=== PATIENT | male | born 1975 | race Caucasian/White ===

== ENCOUNTER 2018-12-31 18:14 | Emergency (ER) | payer MEDICAID ==
[~2018-12-31] VITALS: Ht 160 cm; Wt 63.5 kg
[2018-12-31] MEDS ORDERED: DIAZEPAM 5 MG/ML 2 ML DISP.SYRIN IV PRN (19:30)
--- NOTE | 2018-12-31 19:30 | NUR ---
PT BIBSELF C/O INTERMITTENT L SIDE CHEST PAIN X3 DAYS. +VOMITTING, -SOB. PT AOX4. RESP EVEN AND UNLABORED. PT ON MONITOR IN BED 2. WILL CONTINUE TO MONITOR.
--- NOTE | 2018-12-31 19:31 | NUR ---
BLOOD DRAWN AND GIVEN TO LAB
--- NOTE | 2018-12-31 19:31 | NUR ---
TECH AT BEDSIDE FOR EKG
[2018-12-31 19:36] LABS: BASOPHILS # (AUTO) 0.1 /CMM (0.0-0.2); BASOPHILS % (AUTO) 2.1 % (0.0-2.0); EOSINOPHILS % (AUTO) 0.7 % (0.0-6.0); HEMATOCRIT 42 % (39-51); HEMOGLOBIN 14.2 g/dL (13.5-17.5); LYMPHOCYTES # (AUTO) 0.7 /CMM (0.8-4.8); LYMPHOCYTES % (AUTO) 20.2 % (20.0-44.0); MEAN CORPUSCULAR HGB CONC 34 g/dl (31.0-36.0); MEAN CORPUSCULAR VOLUME 95 fL (80-96); MONOCYTES # (AUTO) 0.4 /CMM (0.1-1.30); MONOCYTES % (AUTO) 11.3 % (2.0-12.0); NEUTROPHILS # (AUTO) 2.2 /CMM (1.8-8.9); NEUTROPHILS % (AUTO) 65.7 % (43.0-81.0); PLATELET COUNT (AUTO) 155 /CMM (150-450); WHITE BLOOD COUNT (AUTO) 3.3 K/uL (4.3-11.0)
[2018-12-31] MEDS ORDERED: LORAZEPAM INJ 2 MG/ML VIAL IV PRN (20:00)
[2018-12-31] MEDS ORDERED: LORAZEPAM INJ 2 MG/ML VIAL ONE ×2 (20:02→21:22)
[2018-12-31 20:07] LABS: CALCIUM, SERUM 8.8 mg/dL (8.5-10.1); CARBON DIOXIDE 25 mmol/L (21-32); CHLORIDE 102 mmol/L (98-107); CREATININE 0.8 mg/dL (0.6-1.3); GLUCOSE 106 mg/dL (74-106); POTASSIUM 3.8 mmol/L (3.5-5.1); SODIUM SERUM 141 mmol/L (136-145); UREA NITROGEN, BLOOD 5 mg/dL (7-18)
--- NOTE | 2018-12-31 20:25 | NUR ---
SECOND DOSE OF 1MG ATIVAN IVP GIVEN PER MD ORDER
[2018-12-31] MEDS ORDERED: LORAZEPAM INJ 2 MG/ML VIAL IV ONE ×2 (21:30)
[2018-12-31 22:27] VITALS: BP 132/79
--- NOTE | 2018-12-31 22:28 | NUR ---
IV removed. Catheter intact and site benign. Pressure and 4x4 applied to site. No bleeding noted.Patient discharged to home in stable condition. Written and verbal after care instructions given. Patient verbalizes understanding of instruction.
== END 2018-12-31 22:38 | disposition home or self-care (01) ==
LOC: ER 18:20
DX: F10.239 Alcohol dependence with withdrawal, unspecified (principal); Z60.2 Problems related to living alone; Y90.9 Presence of alcohol in blood, level not specified
CPT/HCPCS: 36415; 71045; 80048; 84484; 85025; 93005 ×2; 96374; 96376; 99284; J2060 ×2

== ENCOUNTER 2019-03-17 10:47 | Emergency (ER) | payer SELFPAY ==
[~2019-03-17] VITALS: Ht 160 cm; Wt 69.4 kg
--- NOTE | 2019-03-17 11:05 | NUR ---
PT PRESENTED TO THE ER WITH A C/O INTERMITTENT L SIDED CP THAT RADIATES TO LUE. PT CURRENTLY DENIES PAIN. PT STATED THAT HE LIVES IN HIS CAR AND DOES NOT WANT [facility] INFO. PT IS GUINEAN SPEAKING WITH A LITTLE MOHAWK.
--- NOTE | 2019-03-17 11:48 | NUR ---
PT APPEARS TO BE RESTING COMFORTABLY WITH NO S/S OF PAIN OR DISTRESS.
--- NOTE | 2019-03-17 14:30 | NUR ---
Patient discharged to home in stable condition BY DR ORNELAS. VERBAL INSTRUCTIONS GIVEN TO PT. PT AMBULATED OUT WITH A STEADY GAIT. VSS.
[2019-03-17 15:21] VITALS: BP 136/78
== END 2019-03-17 14:30 | disposition home or self-care (01) ==
LOC: ER 10:49
DX: F10.239 Alcohol dependence with withdrawal, unspecified (principal); R07.89 Other chest pain; Y90.9 Presence of alcohol in blood, level not specified; Z60.2 Problems related to living alone

== ENCOUNTER 2019-10-12 13:49 | Emergency (ER) | payer MEDICAID ==
[~2019-10-12] VITALS: Ht 162.6 cm; Wt 59.0 kg
--- NOTE | 2019-10-12 13:58 | NUR ---
CAME IN FOR R SIDED CHEST PAIN, NON-RADIATING. ALSO C/O HEADACHE x 1WEEK. TO ER BED 9, HOOKED TO TUBE DRAW HELPER AND POX, VSS, CHANGED TO HOSP GOWN, WARM BLANKET PROVIDED, PATIENT AAO x 4, BREATHING EVEN AND UNLABORED. AWAITING MD MEZA.
--- NOTE | 2019-10-12 14:11 | NUR ---
DR ORNELAS AT BEDSIDE
[2019-10-12 14:27] LABS: BASOPHILS # (AUTO) 0.1 /CMM (0.0-0.2); BASOPHILS % (AUTO) 2.4 % (0.0-2.0); EOSINOPHILS % (AUTO) 1.1 % (0.0-6.0); HEMATOCRIT 40 % (39-51); HEMOGLOBIN 13.2 g/dL (13.5-17.5); LYMPHOCYTES # (AUTO) 1.4 /CMM (0.8-4.8); MEAN CORPUSCULAR HGB CONC 33 g/dl (31.0-36.0); MEAN CORPUSCULAR VOLUME 100 fL (80-96); MONOCYTES # (AUTO) 0.4 /CMM (0.1-1.30); MONOCYTES % (AUTO) 6.9 % (2.0-12.0); NEUTROPHILS % (AUTO) 66.6 % (43.0-81.0); PLATELET COUNT (AUTO) 114 /CMM (150-450); RED BLOOD CELL COUNT(AUTO) 3.96 MIL/uL (4.5-6.0)
[2019-10-12 14:34] LABS: CALCIUM, SERUM 8.5 mg/dL (8.5-10.1); CARBON DIOXIDE 27 mmol/L (21-32); CHLORIDE 100 mmol/L (98-107); CREATININE 0.6 mg/dL (0.6-1.3); GLUCOSE 190 mg/dL (74-106); POTASSIUM 3.8 mmol/L (3.5-5.1); SODIUM SERUM 136 mmol/L (136-145); UREA NITROGEN, BLOOD 7 mg/dL (7-18)
[2019-10-12 14:50] LABS: ALANINE AMINOTRANSFERASE 124 U/L (12-78); ALBUMIN 3.5 g/dL (3.4-5.0); ALKALINE PHOSPHATASE 100 U/L (46-116); ASPARTATE AMINOTRANSFERASE 177 U/L (15-37); B-TYPE NATRIURETIC PEPTIDE 20 PG/ML (0-125); BILIRUBIN,DIRECT 0.1 mg/dL (0.0-0.2); BILIRUBIN,TOTAL 0.2 mg/dL (0.2-1.0); TOTAL PROTEIN, SERUM 7.8 g/dL (6.4-8.2)
[2019-10-12 15:50] VITALS: BP 142/79
== END 2019-10-12 15:51 | disposition home or self-care (01) ==
LOC: ER 13:52
DX: R07.89 Other chest pain (principal); R51 Headache; Z60.2 Problems related to living alone
CPT/HCPCS: 36415; 71045-TC; 80048-TC; 80076-TC; 83880; 84484-TC; 85025-TC; 85378-TC

== ENCOUNTER 2020-07-14 12:05 | Emergency (ER) | payer MEDICAID ==
[~2020-07-14] VITALS: Ht 165.1 cm; Wt 74.8 kg
[2020-07-14 12:18] VITALS: BP 143/93
--- NOTE | 2020-07-14 12:20 | NUR ---
DR. LEON AT BEDSIDE FOR EVAL.
== END 2020-07-14 12:28 | disposition home or self-care (01) ==
LOC: ER 12:11
DX: G62.1 Alcoholic polyneuropathy (principal); I10 Essential (primary) hypertension; Z60.2 Problems related to living alone

== ENCOUNTER 2020-08-26 11:06 | Emergency (ER) | payer MEDICAID ==
[~2020-08-26] VITALS: Ht 165.1 cm; Wt 59.0 kg
--- NOTE | 2020-08-26 11:30 | NUR ---
CAME IN FOR L HAND INDEX FINGER SWELLING AND PAIN W/ OPEN WOUND. PT IS AAOX4. NOT IN RESP DISTRESS. AMBULATORY. AWAITING MD FOR SUSANA
[2020-08-26 12:19] LABS: BASOPHILS # (AUTO) 0.1 /CMM (0.0-0.2); BASOPHILS % (AUTO) 0.8 % (0.0-2.0); EOSINOPHILS % (AUTO) 2.3 % (0.0-6.0); HEMATOCRIT 39 % (39-51); LYMPHOCYTES # (AUTO) 1.7 /CMM (0.8-4.8); LYMPHOCYTES % (AUTO) 18.2 % (20.0-44.0); MEAN CORPUSCULAR HGB CONC 33 g/dl (31.0-36.0); MEAN CORPUSCULAR VOLUME 98 fL (80-96); MONOCYTES # (AUTO) 0.4 /CMM (0.1-1.30); MONOCYTES % (AUTO) 4.3 % (2.0-12.0); NEUTROPHILS # (AUTO) 6.9 /CMM (1.8-8.9); NEUTROPHILS % (AUTO) 74.4 % (43.0-81.0); PLATELET COUNT (AUTO) 219 /CMM (150-450); RED BLOOD CELL COUNT(AUTO) 3.96 MIL/uL (4.5-6.0); WHITE BLOOD COUNT (AUTO) 9.3 K/uL (4.3-11.0)
[2020-08-26 12:26] LABS: CALCIUM, SERUM 9.1 mg/dL (8.5-10.1); CREATININE 0.5 mg/dL (0.6-1.3); POTASSIUM 3.9 mmol/L (3.5-5.1)
[2020-08-26] MEDS ORDERED: CEPHALEXIN MONOHYDRATE 500 MG CAPSULE PO ONE ×2 (13:00→13:02)
[2020-08-26] MEDS ORDERED: SULFAMETH/TRIMETH 800/160 MG 1 UDTAB TABLET PO ONE (13:00)
[2020-08-26] MEDS ORDERED: SULFAMETH/TRIMETH 800/160 MG 1 UDTAB TABLET ONE (13:02)
[2020-08-26] MEDS ORDERED: CEPH500C2 PO (13:03)
[2020-08-26] MEDS ORDERED: SULF1TAB48 PO (13:03)
--- NOTE | 2020-08-26 13:26 | NUR ---
Patient discharged to home in stable condition. Written and verbal after care instructions given. Patient verbalizes understanding of instruction. Pt ambulatory with a steady gait
[2020-08-26 13:27] VITALS: BP 110/75
== END 2020-08-26 13:27 | disposition home or self-care (01) ==
LOC: ER 11:06
DX: L03.012 Cellulitis of left finger (principal); I10 Essential (primary) hypertension; F10.10 Alcohol abuse, uncomplicated; Y90.9 Presence of alcohol in blood, level not specified; Z79.899 Other long term (current) drug therapy; Z59.0 Homelessness
CPT/HCPCS: 36415; 73140-TC; 80048-TC; 85025-TC

== ENCOUNTER 2020-09-07 20:55 | Emergency (ER) | payer MEDICAID ==
[~2020-09-07] VITALS: Ht 165.1 cm; Wt 59.0 kg
[~2020-09-07 20:55] MED LIST: CEPH500C2 PO; SULF1TAB48 PO
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
[2020-09-07 22:50] LABS: BASOPHILS # (AUTO) 0.1 K/uL (0.0-0.2); BASOPHILS % (AUTO) 1.7 % (0.0-2.0); EOSINOPHILS % (AUTO) 0.6 % (0.0-6.0); HEMATOCRIT 41 % (39-51); HEMOGLOBIN 13.3 g/dL (13.5-17.5); LYMPHOCYTES # (AUTO) 1.4 K/uL (0.8-4.8); LYMPHOCYTES % (AUTO) 37.2 % (20.0-44.0); MEAN CORPUSCULAR HGB CONC 33 g/dl (31.0-36.0); MEAN CORPUSCULAR VOLUME 99 fL (80-96); MONOCYTES # (AUTO) 0.2 K/uL (0.1-1.30); MONOCYTES % (AUTO) 6.6 % (2.0-12.0); NEUTROPHILS % (AUTO) 53.9 % (43.0-81.0); RED BLOOD CELL COUNT(AUTO) 4.09 MIL/uL (4.5-6.0); WHITE BLOOD COUNT (AUTO) 3.8 K/uL (4.3-11.0)
[2020-09-07 23:14] LABS: CALCIUM, SERUM 8.5 mg/dL (8.5-10.1); CARBON DIOXIDE 27 mmol/L (21-32); CHLORIDE 103 mmol/L (98-107); CREATININE 0.6 mg/dL (0.6-1.3); GLUCOSE 118 mg/dL (74-106); POTASSIUM 3.8 mmol/L (3.5-5.1); SODIUM SERUM 141 mmol/L (136-145); UREA NITROGEN, BLOOD 6 mg/dL (7-18)
[2020-09-07 23:20] LABS: ALANINE AMINOTRANSFERASE 78 U/L (12-78); ALBUMIN 3.7 g/dL (3.4-5.0); ALCOHOL, BLOOD 497 mg/dL (0-0); ALKALINE PHOSPHATASE 151 U/L (46-116); ASPARTATE AMINOTRANSFERASE 128 U/L (15-37); BILIRUBIN,DIRECT 0.1 mg/dL (0.0-0.2); BILIRUBIN,TOTAL 0.2 mg/dL (0.2-1.0)
[2020-09-07 23:22] LABS: ACETAMINOPHEN < 2 ug/ml (10-30)
[2020-09-07 23:33] LABS: PLATELET COUNT (AUTO) 51 K/uL (150-450)
[2020-09-07] MEDS ORDERED: LIDOCAINE 2% JEL UROJET 10 ML MM ONE (23:33)
--- NOTE | 2020-09-07 23:36 | NUR ---
urine collected and sent to the lab.
[2020-09-07 23:53] LABS: BILIRUBIN,URINE NEGATIVE (NEGATIVE); COLOR,URINE YELLOW (YELLOW); LEUKOCYTE ESTERASE ,URINE NEGATIVE (NEGATIVE); NITRITE, URINE NEGATIVE (NEGATIVE); PROTEIN,URINE NEGATIVE (NEGATIVE); UGLUCOSE NEGATIVE (NEGATIVE); UROBILINOGEN,URINE 0.2 EU/dL (0.2)
[2020-09-08 00:34] LABS: BACTERIA,URINE None seen /HPF (None Seen); RBC,URINE 0-2 /HPF (0-2); SQUAMOUS EPITHELIAL CELL,UR Few /HPF (None Seen); URINE AMORPHOUS URATE Few /HPF (None Seen); WBC,URINE 0-2 /HPF (0-3)
[2020-09-08 00:40] LABS: LYMPHOCYTES % (MANUAL) 45 % (16-48); MONOCYTES % (MANUAL) 5 % (0-11.0); NEUTROPHILS % (MANUAL) 50 (42-76)
--- NOTE | 2020-09-08 04:05 | NUR ---
Patient is road tested, patient is unable to ambulate with a steady gait. Will try at a later time.
--- NOTE | 2020-09-08 07:58 | NUR ---
pt awake ate brealfast and amb to br voided back to bed
--- NOTE | 2020-09-08 10:54 | NUR ---
PT. VERBALIZED UNDERSTANDING OF AFTERCARE INSTRUCTIONS.Patient discharged to home in stable condition. Written and verbal after care instructions given. Patient verbalizes understanding of instruction.IV removed. Catheter intact and site benign. Pressure and 4x4 applied to site. No bleeding noted.
[2020-09-08 10:55] VITALS: BP 126/73
== END 2020-09-08 10:56 | disposition home or self-care (01) ==
LOC: ER 20:58
DX: S20.213A Contusion of bilateral front wall of thorax, initial encounter (principal); I10 Essential (primary) hypertension; Y08.89XA Assault by other specified means, initial encounter; Y93.89 Activity, other specified; Y92.89 Other specified places as the place of occurrence of the external cause; Y99.8 Other external cause status
CPT/HCPCS: 36415; 71045; 80048; 80076; 80143; 80307; 80320; 81001; 84484; 85007; 85025; 93005; 99285; J3490; G0480

== ENCOUNTER 2020-09-17 14:39 | Emergency (ER) | payer MEDICAID ==
[~2020-09-17] VITALS: Ht 165.1 cm; Wt 55.3 kg
--- NOTE | 2020-09-17 14:58 | NUR ---
CALLED TO TRIAGE,NO ANSWER
[2020-09-17 14:59] VITALS: BP 126/89
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
[2020-09-17] MEDS ORDERED: AMOX-430 PO (15:54)
[2020-09-17] MEDS ORDERED: AMOX/CLAVULANATE 875 MG TABLET ONE (15:54)
[2020-09-17] MEDS ORDERED: AMOX/CLAVULANATE 875 MG TABLET PO ONE (16:00)
== END 2020-09-17 16:34 | disposition home or self-care (01) ==
LOC: ER 15:58
DX: S70.11XA Contusion of right thigh, initial encounter (principal); I10 Essential (primary) hypertension; W54.0XXA Bitten by dog, initial encounter; Y93.89 Activity, other specified; Y92.89 Other specified places as the place of occurrence of the external cause; Y99.8 Other external cause status

== ENCOUNTER 2020-11-18 15:04 | Emergency (ER) | payer MEDICAID ==
[~2020-11-18] VITALS: Ht 162.6 cm; Wt 70.3 kg
[~2020-11-18 15:04] MED LIST changes: +AMOX-430 PO
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
--- NOTE | 2020-11-18 16:04 | NUR ---
URINE COLLECTED AND SENT TO THE LAB
[2020-11-18 16:25] LABS: BASOPHILS # (AUTO) 0.1 K/uL (0.0-0.2); BASOPHILS % (AUTO) 1.1 % (0.0-2.0); EOSINOPHILS % (AUTO) 0.1 % (0.0-6.0); HEMATOCRIT 40 % (39-51); HEMOGLOBIN 13.3 g/dL (13.5-17.5); LYMPHOCYTES # (AUTO) 0.3 K/uL (0.8-4.8); LYMPHOCYTES % (AUTO) 5.1 % (20.0-44.0); MEAN CORPUSCULAR HGB CONC 34 g/dl (31.0-36.0); MEAN CORPUSCULAR VOLUME 96 fL (80-96); MONOCYTES # (AUTO) 0.3 K/uL (0.1-1.30); MONOCYTES % (AUTO) 5.7 % (2.0-12.0); NEUTROPHILS # (AUTO) 4.8 K/uL (1.8-8.9); PLATELET COUNT (AUTO) 113 K/uL (150-450); RED BLOOD CELL COUNT(AUTO) 4.16 MIL/uL (4.5-6.0); WHITE BLOOD COUNT (AUTO) 5.4 K/uL (4.3-11.0)
[2020-11-18 16:34] LABS: MAGNESIUM 1.5 mg/dL (1.8-2.4)
[2020-11-18 16:36] LABS: CALCIUM, SERUM 9.8 mg/dL (8.5-10.1); CARBON DIOXIDE 29 mmol/L (21-32); CHLORIDE 100 mmol/L (98-107); CREATININE 0.7 mg/dL (0.6-1.3); GLUCOSE 152 mg/dL (74-106); POTASSIUM 4.7 mmol/L (3.5-5.1); SODIUM SERUM 139 mmol/L (136-145); UREA NITROGEN, BLOOD 5 mg/dL (7-18)
[2020-11-18 16:47] LABS: ALANINE AMINOTRANSFERASE 139 U/L (12-78); ALCOHOL, BLOOD < 3 mg/dL (0-0); ALKALINE PHOSPHATASE 119 U/L (46-116); ASPARTATE AMINOTRANSFERASE 189 U/L (15-37); BILIRUBIN,DIRECT 0.3 mg/dL (0.0-0.2); BILIRUBIN,TOTAL 0.7 mg/dL (0.2-1.0)
[2020-11-18 16:48] LABS: BILIRUBIN,URINE Negative (NEGATIVE); COLOR,URINE DARK YELLOW (YELLOW); LEUKOCYTE ESTERASE ,URINE Negative (NEGATIVE); NITRITE, URINE Negative (NEGATIVE); PH,URINE 7.5 (5.0-8.0); PROTEIN,URINE 100 mg/dl (NEGATIVE); UGLUCOSE Negative (NEGATIVE)
[2020-11-18 16:49] LABS: ACETAMINOPHEN < 0 ug/ml (10-30)
[2020-11-18 17:59] LABS: BACTERIA,URINE None seen /HPF (None Seen); RBC,URINE 0-2 /HPF (0-2); SQUAMOUS EPITHELIAL CELL,UR Few /HPF (None Seen); WBC,URINE 0-2 /HPF (0-3)
[2020-11-18] MEDS ORDERED: CHLORDIAZEPOXIDE HCL 25 MG CAPSULE ONE (18:00)
[2020-11-18] MEDS ORDERED: CHLORDIAZEPOXIDE HCL 25 MG CAPSULE PO ONE (18:00)
[2020-11-18] MEDS ORDERED: MAGNESIUM CHLORIDE 64 MG TABLET.SA PO SCH (18:00)
[2020-11-18] MEDS ORDERED: CHLO25CA22 PO (19:20)
[2020-11-18 20:07] VITALS: BP 129/76
--- NOTE | 2020-11-18 20:07 | NUR ---
Patient discharged to home in stable condition. Written and verbal after care instructions given. Patient verbalizes understanding of instruction and RX. Pt ambulated out of ED. VSS.
== END 2020-11-18 20:07 | disposition home or self-care (01) ==
LOC: ER 15:07
DX: F10.239 Alcohol dependence with withdrawal, unspecified (principal); R56.9 Unspecified convulsions; D64.9 Anemia, unspecified; D69.6 Thrombocytopenia, unspecified; E83.42 Hypomagnesemia; R94.5 Abnormal results of liver function studies; I10 Essential (primary) hypertension; Z79.899 Other long term (current) drug therapy; Y90.0 Blood alcohol level of less than 20 mg/100 ml
CPT/HCPCS: 36415; 70450-TC; 80048-TC; 80076-TC; 81001; 82550-TC; 83735-TC; 85025-TC; G0480

== ENCOUNTER 2021-01-17 11:21 | Emergency (ER) | payer MEDICAID ==
[~2021-01-17] VITALS: Ht 162.6 cm; Wt 61.7 kg
[~2021-01-17 11:21] MED LIST changes: +CHLO25CA22 PO
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
[2021-01-17] MEDS ORDERED: LIDOCAINE /MPF 1% VIAL 5 ML VIAL ONE (11:40)
--- NOTE | 2021-01-17 11:46 | NUR ---
TAKEN TO CT
--- NOTE | 2021-01-17 12:05 | NUR ---
EMT AT BEDSIDE FOR WOUND CARE
[2021-01-17 13:32] VITALS: BP 131/88
--- NOTE | 2021-01-17 13:32 | NUR ---
Patient discharged to home in stable condition. Written and verbal after care instructions given. Patient verbalizes understanding of instruction.
== END 2021-01-17 13:32 | disposition home or self-care (01) ==
LOC: ER 11:21
DX: S01.81XA Laceration without foreign body of other part of head, initial encounter (principal); F10.10 Alcohol abuse, uncomplicated; Z79.899 Other long term (current) drug therapy; W01.0XXA Fall on same level from slipping, tripping and stumbling without subsequent striking against object, initial encounter; Y93.89 Activity, other specified; Y92.89 Other specified places as the place of occurrence of the external cause; Y99.8 Other external cause status; Y90.9 Presence of alcohol in blood, level not specified
CPT/HCPCS: 12013; 70450; 72125; 99284; A6403; J3490

== ENCOUNTER 2021-01-23 07:49 | Emergency (ER) | payer MEDICAID ==
[~2021-01-23] VITALS: Ht 165.1 cm; Wt 65.8 kg
[2021-01-23 08:08] VITALS: BP 127/105
== END 2021-01-23 09:18 | disposition home or self-care (01) ==
LOC: ER 07:50
DX: S01.81XD Laceration without foreign body of other part of head, subsequent encounter (principal); X58.XXXD Exposure to other specified factors, subsequent encounter

== ENCOUNTER 2021-02-10 18:06 | Emergency (ER) | payer MEDICAID ==
[~2021-02-10] VITALS: Ht 162.6 cm; Wt 63.5 kg
[2021-02-10 18:28] VITALS: BP 144/87
[2021-02-10 18:51] LABS: BASOPHILS # (AUTO) 0.1 K/uL (0.0-0.2); EOSINOPHILS % (AUTO) 0.7 % (0.0-6.0); HEMATOCRIT 39 % (39-51); HEMOGLOBIN 12.9 g/dL (13.5-17.5); LYMPHOCYTES # (AUTO) 1.9 K/uL (0.8-4.8); LYMPHOCYTES % (AUTO) 40.3 % (20.0-44.0); MEAN CORPUSCULAR HGB CONC 33 g/dl (31.0-36.0); MEAN CORPUSCULAR VOLUME 99 fL (80-96); MONOCYTES # (AUTO) 0.4 K/uL (0.1-1.30); NEUTROPHILS # (AUTO) 2.2 K/uL (1.8-8.9); PLATELET COUNT (AUTO) 185 K/uL (150-450); RED BLOOD CELL COUNT(AUTO) 3.91 MIL/uL (4.5-6.0); WHITE BLOOD COUNT (AUTO) 4.6 K/uL (4.3-11.0)
[2021-02-10 18:58] LABS: CALCIUM, SERUM 8.8 mg/dL (8.5-10.1); CARBON DIOXIDE 27 mmol/L (21-32); CHLORIDE 101 mmol/L (98-107); CREATININE 0.6 mg/dL (0.6-1.3); GLUCOSE 111 mg/dL (74-106); POTASSIUM 3.5 mmol/L (3.5-5.1); SODIUM SERUM 140 mmol/L (136-145); UREA NITROGEN, BLOOD 5 mg/dL (7-18)
[2021-02-10] MEDS ORDERED: IV NS 0.9% 1,000 ML BAG IV ONE (19:00)
[2021-02-10] MEDS ORDERED: Thiamine 100 MG in IV D5W 50 ML IV SCH (19:00)
[2021-02-10] MEDS ORDERED: CYAN-51 PO (19:59)
--- NOTE | 2021-02-10 23:01 | NUR ---
Patient discharged to home in stable condition. Written and verbal after care instructions given. Patient verbalizes understanding of instruction.
== END 2021-02-10 23:43 | disposition home or self-care (01) ==
LOC: ER 18:11
DX: D51.0 Vitamin B12 deficiency anemia due to intrinsic factor deficiency (principal)
CPT/HCPCS: 36415; 71045; 80048; 84425; 84484; 85025; 85730; 96365; 99284; J3411; J7060

== ENCOUNTER 2021-02-25 07:38 | Emergency (ER) | payer MEDICAID ==
[~2021-02-25] VITALS: Ht 165.1 cm; Wt 63.5 kg
[~2021-02-25 07:38] MED LIST changes: +CYAN-51 PO
--- NOTE | 2021-02-25 08:10 | NUR ---
PT CAME TO ER C/O CHRONIC R KNEE PAIN, WORSE AT NIGHT X 5 YEARS. AAOX4, AMBULATES WITH A LIMP TO BED 10 ASSISTED WITH A CANE. BREATHING EVEN AND UNLABORED. AWAITING MD FOR SUSANA
[2021-02-25 08:34] VITALS: BP 133/83
[2021-02-25] MEDS ORDERED: LIDOCAINE 0.5%-EPI 1:200,000 50 ML VIAL ONE (08:54)
[2021-02-25] MEDS ORDERED: LIDOCAINE 1%-EPI 1:100,000 20 ML VIAL TP ONE (09:00)
[2021-02-25] MEDS ORDERED: IBUPROFEN 600 MG TABLET PO ONE (09:00)
[2021-02-25] MEDS ORDERED: IBUPROFEN 600 MG TABLET ONE (09:16)
[2021-02-25 09:32] LABS: BASOPHILS # (AUTO) 0.1 K/uL (0.0-0.2); BASOPHILS % (AUTO) 1.2 % (0.0-2.0); EOSINOPHILS % (AUTO) 0.1 % (0.0-6.0); HEMATOCRIT 37 % (39-51); HEMOGLOBIN 12.4 g/dL (13.5-17.5); LYMPHOCYTES # (AUTO) 0.8 K/uL (0.8-4.8); LYMPHOCYTES % (AUTO) 13.8 % (20.0-44.0); MEAN CORPUSCULAR HGB CONC 34 g/dl (31.0-36.0); MEAN CORPUSCULAR VOLUME 98 fL (80-96); MONOCYTES # (AUTO) 0.6 K/uL (0.1-1.30); MONOCYTES % (AUTO) 10.3 % (2.0-12.0); NEUTROPHILS # (AUTO) 4.5 K/uL (1.8-8.9); NEUTROPHILS % (AUTO) 74.6 % (43.0-81.0); PLATELET COUNT (AUTO) 126 K/uL (150-450); RED BLOOD CELL COUNT(AUTO) 3.77 MIL/uL (4.5-6.0)
[2021-02-25 09:56] LABS: CALCIUM, SERUM 8.6 mg/dL (8.5-10.1); CREATININE 0.6 mg/dL (0.6-1.3); POTASSIUM 3.8 mmol/L (3.5-5.1)
--- NOTE | 2021-02-25 11:21 | NUR ---
SYNOVIAL FLUID WAS COLLECTED BY DR ROBLEDO. SPECIMEN WAS SENT TO THE LAB
[2021-02-25] MEDS ORDERED: IV NS 0.9% 1,000 ML BAG IV ONE (12:00)
[2021-02-25] MEDS ORDERED: CEFTRIAXONE 1GM BAG (ER ONLY) 1 GM/50 ML PIGGYBACK IV ONE (15:00)
[2021-02-25] MEDS ORDERED: CEFTRIAXONE 1GM BAG (ER ONLY) 50 ML IV ONE (15:21)
--- NOTE | 2021-02-25 15:27 | NUR ---
DISCONTINUE ROCEPHIN ORDER. DUPLICATE
[2021-02-25 15:34] LABS: URIC ACID 4.3 mg/dL (2.6-7.2)
[2021-02-25] MEDS ORDERED: CEFTRIAXONE 1 G in IV D5W 50 ML IV ONE (16:00)
== END 2021-02-25 16:03 | disposition home or self-care (01) ==
LOC: ER 07:40
DX: M25.461 Effusion, right knee (principal)
CPT/HCPCS: 20610; 36415; 73564; 80048; 83605; 84550; 85025; 85652; 86140; 87070; 89051 ×2; 89060; 96361; 96365; 99284; J0696; J3490; J7030; 84155-TC; J7060

== ENCOUNTER 2021-04-12 12:16 | Emergency (ER) | payer MEDICAID ==
[~2021-04-12] VITALS: Ht 170.2 cm; Wt 65.8 kg
--- NOTE | 2021-04-12 12:36 | NUR ---
TO ER BED 14, BIB SELF C/O R KNEE PAIN X 1 MONTH, AAOX3, BREATHING EVEN AND NON LABORED, CONNECTED TO MONITOR, AWAITING MD ORDERS
--- NOTE | 2021-04-12 13:14 | NUR ---
SEEN AND EXAMINED BY .
--- NOTE | 2021-04-12 13:48 | NUR ---
URINE COLLECTED AND SENT TO LAB
[2021-04-12 14:41] LABS: BASOPHILS # (AUTO) 0.1 K/uL (0.0-0.2); BASOPHILS % (AUTO) 1.8 % (0.0-2.0); EOSINOPHILS % (AUTO) 8.8 % (0.0-6.0); HEMATOCRIT 36 % (39-51); LYMPHOCYTES # (AUTO) 1.1 K/uL (0.8-4.8); LYMPHOCYTES % (AUTO) 32.7 % (20.0-44.0); MEAN CORPUSCULAR HGB CONC 34 g/dl (31.0-36.0); MEAN CORPUSCULAR VOLUME 95 fL (80-96); MONOCYTES # (AUTO) 0.4 K/uL (0.1-1.30); MONOCYTES % (AUTO) 11.6 % (2.0-12.0); NEUTROPHILS # (AUTO) 1.5 K/uL (1.8-8.9); NEUTROPHILS % (AUTO) 45.1 % (43.0-81.0); PLATELET COUNT (AUTO) 179 K/uL (150-450); RED BLOOD CELL COUNT(AUTO) 3.74 MIL/uL (4.5-6.0); WHITE BLOOD COUNT (AUTO) 3.3 K/uL (4.3-11.0)
[2021-04-12 15:02] LABS: CALCIUM, SERUM 8.7 mg/dL (8.5-10.1); CREATININE 0.7 mg/dL (0.6-1.3); POTASSIUM 3.7 mmol/L (3.5-5.1)
[2021-04-12 15:13] LABS: ALBUMIN 3.3 g/dL (3.4-5.0); BILIRUBIN,DIRECT 0.1 mg/dL (0.0-0.2); BILIRUBIN,TOTAL 0.2 mg/dL (0.2-1.0); TOTAL PROTEIN, SERUM 8.2 g/dL (6.4-8.2)
[2021-04-12] MEDS ORDERED: LEVETIRACETAM (250 MG) 250 MG TABLET PO ONE ×2 (16:00→16:10)
[2021-04-12] MEDS ORDERED: LEVE500T9 PO (16:08)
[2021-04-12 16:30] LABS: BAND % (MANUAL) 1 % (0.0-5.0); EOSINOPHILS % (MANUAL) 9 % (0-4); LYMPHOCYTES % (MANUAL) 34 % (16-48); MONOCYTES % (MANUAL) 10 % (0-11.0); NEUTROPHILS % (MANUAL) 46 (42-76)
--- NOTE | 2021-04-12 16:38 | NUR ---
Patient discharged to home in stable condition. Written and verbal after care instructions given. Patient verbalizes understanding of instruction.
[2021-04-12 16:39] VITALS: BP 122/77
== END 2021-04-12 16:39 | disposition home or self-care (01) ==
LOC: ER 12:19
DX: R56.9 Unspecified convulsions (principal); F10.10 Alcohol abuse, uncomplicated; G62.1 Alcoholic polyneuropathy; M25.561 Pain in right knee; Y90.9 Presence of alcohol in blood, level not specified
CPT/HCPCS: 36415; 70450-TC; 73564-TC; 80048-TC; 80076-TC; 83735-TC; 84484-TC; 85025-TC; G0480

== ENCOUNTER 2021-08-31 10:27 | Emergency (ER) | payer MEDICAID ==
[~2021-08-31] VITALS: Ht 162.6 cm; Wt 65.3 kg
--- NOTE | 2021-08-31 10:42 | NUR ---
BLE numbness x 4 weeks
[2021-08-31 10:58] VITALS: BP 137/82
--- NOTE | 2021-08-31 10:58 | NUR ---
Patient discharged to home in stable condition. Written and verbal after care instructions given. Patient verbalizes understanding of instruction.
== END 2021-08-31 10:59 | disposition home or self-care (01) ==
LOC: ER 10:28
DX: G62.1 Alcoholic polyneuropathy (principal); F10.288 Alcohol dependence with other alcohol-induced disorder; Y90.9 Presence of alcohol in blood, level not specified

== ENCOUNTER 2021-10-23 20:05 | Emergency (ER) | payer MEDICAID ==
[~2021-10-23] VITALS: Ht 167.6 cm; Wt 63.5 kg
[2021-10-23 20:09] VITALS: BP 125/70
--- NOTE | 2021-10-23 20:24 | NUR ---
Patient discharged to home in stable condition. Written and verbal after care instructions given. Patient verbalizes understanding of instruction.
== END 2021-10-23 20:24 | disposition home or self-care (01) ==
LOC: ER 20:09
DX: S83.91XA Sprain of unspecified site of right knee, initial encounter (principal); Y08.89XA Assault by other specified means, initial encounter; Y93.89 Activity, other specified; Y92.89 Other specified places as the place of occurrence of the external cause; Y99.8 Other external cause status

== ENCOUNTER 2021-11-10 14:42 | Emergency (ER) | payer MEDICAID ==
[~2021-11-10] VITALS: Ht 167.6 cm; Wt 72.6 kg
[2021-11-10 14:48] VITALS: BP 126/73
--- NOTE | 2021-11-10 14:48 | NUR ---
BIBS C/O R KNEE PAIN FOR A WHILE. 6/10 PAIN ON PAIN SCALE. PT IS AMBULATORY WITH STEADY GATE. AWIATING MD ORDERS.
[2021-11-10] MEDS ORDERED: IBUP-1955 PO (15:35)
[2021-11-10] MEDS ORDERED: KETOROLAC TROMETHAMINE 15 MG/ML VIAL ONE (15:35)
--- NOTE | 2021-11-10 15:45 | NUR ---
Patient discharged to home in stable condition. Written and verbal after care instructions given. Patient verbalizes understanding of instruction.
[2021-11-10] MEDS ORDERED: KETOROLAC TROMETHAMINE INJ 30 MG/ML VIAL IM ONE (16:00)
== END 2021-11-10 15:45 | disposition home or self-care (01) ==
LOC: ER 14:45
DX: G89.29 Other chronic pain (principal); M25.561 Pain in right knee
CPT/HCPCS: 99283; 96372; J1885

== ENCOUNTER 2021-11-25 17:42 | Emergency (ER) | payer MEDICAID ==
[~2021-11-25] VITALS: Ht 170.2 cm; Wt 66.7 kg
[~2021-11-25 17:42] MED LIST changes: -AMOX-430 PO; -CEPH500C2 PO; -CHLO25CA22 PO; -CYAN-51 PO; +IBUP-1955 PO; -SULF1TAB48 PO
[2021-11-25 17:55] VITALS: BP 124/77
[2021-11-25] MEDS ORDERED: ACETAMINOPHEN ES 500 MG TABLET PO ONE (18:30)
[2021-11-25] MEDS ORDERED: ACETAMINOPHEN ES 500 MG TABLET ONE (18:34)
[2021-11-25] MEDS ORDERED: KETO10TA2 PO (18:36)
[2021-11-25] MEDS ORDERED: TRAM-351 PO (18:36)
--- NOTE | 2021-11-25 18:49 | NUR ---
Patient discharged to home in stable condition. Written and verbal after care instructions given. Patient verbalizes understanding of instruction.
== END 2021-11-25 18:49 | disposition home or self-care (01) ==
LOC: ER 17:45
DX: S82.64XA Nondisplaced fracture of lateral malleolus of right fibula, initial encounter for closed fracture (principal); Z79.899 Other long term (current) drug therapy; W18.30XA Fall on same level, unspecified, initial encounter; Y93.89 Activity, other specified; Y92.89 Other specified places as the place of occurrence of the external cause; Y99.8 Other external cause status
CPT/HCPCS: 73564-TC; 73610-TC

== ENCOUNTER 2021-11-27 09:54 | Emergency (ER) | payer MEDICAID ==
[~2021-11-27] VITALS: Ht 165.1 cm; Wt 68.0 kg
[~2021-11-27 09:54] MED LIST changes: +KETO10TA2 PO; +TRAM-351 PO
[2021-11-27 10:04] VITALS: BP 140/88
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
--- NOTE | 2021-11-27 10:43 | NUR ---
Patient discharged to home in stable condition. Written and verbal after care instructions given. Patient verbalizes understanding of instruction.
== END 2021-11-27 10:43 | disposition home or self-care (01) ==
LOC: ER 10:01
DX: S82.64XD Nondisplaced fracture of lateral malleolus of right fibula, subsequent encounter for closed fracture with routine healing (principal); Z79.899 Other long term (current) drug therapy; X58.XXXD Exposure to other specified factors, subsequent encounter

== ENCOUNTER 2021-12-05 14:19 | Emergency (ER) | payer MEDICAID ==
[~2021-12-05] VITALS: Ht 165.1 cm; Wt 72.6 kg
[2021-12-05 14:26] VITALS: BP 132/78
== END 2021-12-05 15:37 | disposition home or self-care (01) ==
LOC: ER 14:21
DX: S82.61XD Displaced fracture of lateral malleolus of right fibula, subsequent encounter for closed fracture with routine healing (principal); X58.XXXD Exposure to other specified factors, subsequent encounter

== ENCOUNTER 2021-12-17 10:12 | Emergency (ER) | payer MEDICAID ==
[~2021-12-17] VITALS: Ht 157.5 cm; Wt 59.0 kg
--- NOTE | 2021-12-17 12:00 | NUR ---
Short Posterior splint with stirrup by EMT on affected area. Specific instructions given on care and mobility. Need for OTHOpedic follow up reiterated
[2021-12-17 12:36] VITALS: BP 120/60
--- NOTE | 2021-12-17 12:36 | NUR ---
For discharge- Patient discharged to home in stable condition. Written and verbal after care instructions given. Patient verbalizes understanding of instruction.
== END 2021-12-17 12:38 | disposition home or self-care (01) ==
LOC: ER 10:14
DX: Z48.00 Encounter for change or removal of nonsurgical wound dressing (principal); Z47.89 Encounter for other orthopedic aftercare

== ENCOUNTER 2021-12-24 15:17 | Emergency (ER) | payer MEDICAID ==
[~2021-12-24] VITALS: Ht 157.5 cm; Wt 54.4 kg
[2021-12-24 15:30] VITALS: BP 112/71
--- NOTE | 2021-12-24 15:31 | NUR ---
Was seen here multiple times for leg pain/fx. AMBULATORY, PLACED ON BED, AAOX4.
--- NOTE | 2021-12-24 15:59 | NUR ---
Patient discharged to home in stable condition. Written and verbal after care instructions given. Patient verbalizes understanding of instruction.
== END 2021-12-24 15:55 | disposition home or self-care (01) ==
LOC: ER 15:21
DX: S82.61XD Displaced fracture of lateral malleolus of right fibula, subsequent encounter for closed fracture with routine healing (principal); Z79.899 Other long term (current) drug therapy; X58.XXXD Exposure to other specified factors, subsequent encounter

== ENCOUNTER 2021-12-30 10:18 | Emergency (ER) | payer MEDICAID ==
[~2021-12-30] VITALS: Ht 165.1 cm; Wt 61.2 kg
[2021-12-30 10:28] VITALS: BP 105/69
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
--- NOTE | 2021-12-30 11:57 | NUR ---
Patient discharged to home in stable condition. Written and verbal after care instructions given. Patient verbalizes understanding of instruction.
== END 2021-12-30 12:06 | disposition home or self-care (01) ==
LOC: ER 10:28
DX: S82.61XD Displaced fracture of lateral malleolus of right fibula, subsequent encounter for closed fracture with routine healing (principal); X58.XXXD Exposure to other specified factors, subsequent encounter
CPT/HCPCS: 73610-TC

== ENCOUNTER 2022-05-31 11:38 | Emergency (ER) | payer MEDICAID ==
[~2022-05-31] VITALS: Ht 175.3 cm; Wt 65.8 kg
[~2022-05-31 11:38] MED LIST changes: +IBUP-1953 PO
[2022-05-31 12:39] VITALS: BP 121/69
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
--- NOTE | 2022-05-31 13:37 | NUR ---
TO XRAY VIA WC
--- NOTE | 2022-05-31 14:50 | NUR ---
Patient discharged to home in stable condition. Written and verbal after care instructions given. Patient verbalizes understanding of instruction.
== END 2022-05-31 15:14 | disposition home or self-care (01) ==
LOC: ER 11:40
DX: S93.401A Sprain of unspecified ligament of right ankle, initial encounter (principal); M19.071 Primary osteoarthritis, right ankle and foot; Z79.899 Other long term (current) drug therapy; X58.XXXA Exposure to other specified factors, initial encounter; Y93.89 Activity, other specified; Y92.89 Other specified places as the place of occurrence of the external cause; Y99.8 Other external cause status
CPT/HCPCS: 73564-TC; 73610-TC

== ENCOUNTER 2023-01-27 11:40 | Emergency (ER) | payer MEDICAID ==
[~2023-01-27] VITALS: Ht 167.6 cm; Wt 76.2 kg
[2023-01-27 11:55] VITALS: BP 119/89; TEMP 98.1; O2SAT 100
== END 2023-01-27 12:20 | disposition home or self-care (01) ==
LOC: ER 11:45
DX: G89.29 Other chronic pain (principal); M25.561 Pain in right knee

== ENCOUNTER 2023-03-08 08:08 | Inpatient (IN) | payer MEDICAID ==
[~2023-03-08] VITALS: Ht 167.6 cm; Wt 59.0 kg
[2023-03-08] MEDS ORDERED: TDAP [DIPH/PERTUSSIS/TET] 0.5 ML VIAL IM ONE ×2 (08:30→09:08)
[2023-03-08] MEDS ORDERED: BACI/NEOM/POLY B OINT PKT 1 UDPKT PACKET TP ONE (08:30)
[2023-03-08] MEDS ORDERED: IV NS 0.9% 1,000 ML BAG IV ONE ×2 (08:30→10:30)
[2023-03-08] MEDS ORDERED: LIDOCAINE 1% INJ 50 ML MDV IJ ONE (08:30)
[2023-03-08 09:12] LABS: BASOPHILS % (AUTO) 0.5 % (0.0-2.0); EOSINOPHILS % (AUTO) 0.1 % (0.0-6.0); HEMATOCRIT 35 % (39-51); HEMOGLOBIN 11.4 g/dL (13.5-17.5); LYMPHOCYTES # (AUTO) 0.5 K/uL (0.8-4.8); LYMPHOCYTES % (AUTO) 9.8 % (20.0-44.0); MEAN CORPUSCULAR HEMOGLOBIN 33 PG (26.0-33.0); MEAN CORPUSCULAR HGB CONC 33 g/dl (31.0-36.0); MEAN CORPUSCULAR VOLUME 99 fL (80-96); MONOCYTES # (AUTO) 0.7 K/uL (0.1-1.30); MONOCYTES % (AUTO) 14.6 % (2.0-12.0); NEUTROPHILS # (AUTO) 3.4 K/uL (1.8-8.9); PLATELET COUNT (AUTO) 83 K/uL (150-450); RED BLOOD CELL COUNT(AUTO) 3.51 MIL/uL (4.5-6.0); RED CELL DISTRIBUTION WIDTH 13.9 % (11.5-15.0); WHITE BLOOD COUNT (AUTO) 4.6 K/uL (4.3-11.0)
[2023-03-08 09:22] LABS: INR 1.1 (0.91-1.10); PARTIAL THROMBOPLASTIN TIME 25.5 SEC (24.3-34.3); PROTHROMBIN TIME 11.6 SECS (9.2-11.1)
[2023-03-08] MEDS ORDERED: LIDOCAINE 0.5%-EPI 1:200,000 50 ML VIAL ONE (09:23)
[2023-03-08 09:25] LABS: ALBUMIN 4.3 g/dL (3.4-5.0); BILIRUBIN,DIRECT 0.4 mg/dL (0.0-0.2); BILIRUBIN,TOTAL 1.2 mg/dL (0.2-1.0); CALCIUM, SERUM 9.1 mg/dL (8.5-10.1); CREATININE 0.6 mg/dL (0.6-1.3); POTASSIUM 3.1 mmol/L (3.5-5.1); TOTAL PROTEIN, SERUM 7.9 g/dL (6.4-8.2)
[2023-03-08] MEDS ORDERED: GELATIN SPONGE,ABSORBABLE 1 SPONGE SPONGE TP ONE ×2 (10:11→13:00)
[2023-03-08 13:36] LABS: THYROID STIMULATING HORMONE 1.585 uIU/mL (0.358-3.74)
[2023-03-08 17:04] LABS: LYMPHOCYTES % (MANUAL) 7 % (16-48); MONOCYTES % (MANUAL) 14 % (0-11.0); NEUTROPHILS % (MANUAL) 79 (42-76); PLATELET ESTIMATE DECREASED
[2023-03-08] MEDS ORDERED: Z GUARD REMEDY 4 OZ OINT TP PRN (19:30)
[2023-03-08] MEDS ORDERED: POTASSIUM CHLORIDE 20 MEQ TAB.PRT.SR PO ONE ×2 (19:30→22:50)
[2023-03-08] MEDS ORDERED: TEMAZEPAM 15 MG CAPSULE PO PRN (19:30)
[2023-03-08] MEDS ORDERED: LACTULOSE 10 G/15 ML UDC (PYXIS) PO ONE (19:30)
[2023-03-08] MEDS ORDERED: ONDANSETRON HCL/PF 4 MG/2 ML VIAL IVP PRN (19:30)
[2023-03-08] MEDS ORDERED: HYDROCODONE/APAP 5/325MG TABLET PO PRN (19:30)
[2023-03-08] MEDS ORDERED: MAG HYDROX/AL HYDROX/SIMETH 30 ML UDC PO PRN (19:30)
[2023-03-08] MEDS ORDERED: MAGNESIUM HYDROXIDE 30 ML UDC PO PRN (19:30)
[2023-03-08] MEDS ORDERED: IV NS 0.9% 1,000 ML IV PRN (19:30)
[2023-03-08] MEDS ORDERED: LACTULOSE 10 G/15 ML UDC (PYXIS) ONE (22:48)
[2023-03-08 23:00] VITALS: BP 113/68; TEMP 98.5
[2023-03-09 07:58] LABS: BASOPHILS % (AUTO) 0.8 % (0.0-2.0); EOSINOPHILS % (AUTO) 1.2 % (0.0-6.0); HEMATOCRIT 26 % (39-51); HEMOGLOBIN 8.5 g/dL (13.5-17.5); LYMPHOCYTES # (AUTO) 0.5 K/uL (0.8-4.8); LYMPHOCYTES % (AUTO) 19.9 % (20.0-44.0); MEAN CORPUSCULAR HEMOGLOBIN 32 PG (26.0-33.0); MEAN CORPUSCULAR HGB CONC 33 g/dl (31.0-36.0); MEAN CORPUSCULAR VOLUME 97 fL (80-96); MONOCYTES # (AUTO) 0.6 K/uL (0.1-1.30); NEUTROPHILS # (AUTO) 1.5 K/uL (1.8-8.9); NEUTROPHILS % (AUTO) 56.1 % (43.0-81.0); PLATELET COUNT (AUTO) 78 K/uL (150-450); RED BLOOD CELL COUNT(AUTO) 2.67 MIL/uL (4.5-6.0); RED CELL DISTRIBUTION WIDTH 13.6 % (11.5-15.0); WHITE BLOOD COUNT (AUTO) 2.7 K/uL (4.3-11.0)
[2023-03-09] MEDS: PANTOPRAZOLE 40 MG TABLET.DR PO SCH (08:07)
[2023-03-09] MEDS: THIAMINE HCL 100 MG TABLET PO SCH (08:07)
[2023-03-09 08:23] LABS: CALCIUM, SERUM 8.2 mg/dL (8.5-10.1); CREATININE 0.6 mg/dL (0.6-1.3); MAGNESIUM 1.7 mg/dL (1.8-2.4); PHOSPHORUS 2.4 mg/dL (2.5-4.9); POTASSIUM 3.4 mmol/L (3.5-5.1)
[2023-03-09] MEDS ORDERED: POTASSIUM CHLORIDE 20 MEQ TAB.PRT.SR PO ONE (10:00)
[2023-03-09] MEDS ORDERED: MAGNESIUM OXIDE 400 MG TABLET PO ONE (11:00)
[2023-03-09 11:01] LABS: EOSINOPHILS % (MANUAL) 2 % (0-4); LYMPHOCYTES % (MANUAL) 18 % (16-48); MONOCYTES % (MANUAL) 23 % (0-11.0); NEUTROPHILS % (MANUAL) 57 (42-76)
[2023-03-09 11:02] LABS: PLATELET ESTIMATE DECREASED
[2023-03-09] MEDS ORDERED: NEUTRA PHOS 1 POWD.PACKET PO ONE (16:00)
[2023-03-10 07:05] LABS: CALCIUM, SERUM 8.6 mg/dL (8.5-10.1); CREATININE 0.4 mg/dL (0.6-1.3); POTASSIUM 3.5 mmol/L (3.5-5.1)
[2023-03-10] MEDS: PANTOPRAZOLE 40 MG TABLET.DR PO SCH (07:47)
[2023-03-10] MEDS: THIAMINE HCL 100 MG TABLET PO SCH (09:47)
[2023-03-10 16:00] VITALS: BP 113/65; TEMP 98.4; O2SAT 98
[2023-03-11] MEDS: PANTOPRAZOLE 40 MG TABLET.DR PO SCH (08:57)
[2023-03-11] MEDS: THIAMINE HCL 100 MG TABLET PO SCH (08:57)
[2023-03-11] MEDS ORDERED: THIA100T88 PO (12:49)
[2023-03-12 09:56] LABS: FOLIC ACID 15.5 ng/mL (>3.0)
== END 2023-03-11 16:15 | disposition home or self-care (01) | DRG 115 ==
LOC: ER 08:10 → TELE1 21:27 → MEDSG1 21:49
PROVIDERS: ADMIT Nurse Practitioner Acute Care; ATTEND Nurse Practitioner Acute Care
DX: S02.831A Fracture of medial orbital wall, right side, initial encounter for closed fracture (principal); G93.41 Metabolic encephalopathy; D61.818 Other pancytopenia; G72.2 Myopathy due to other toxic agents; E72.20 Disorder of urea cycle metabolism, unspecified; S01.01XA Laceration without foreign body of scalp, initial encounter; E86.1 Hypovolemia; E87.1 Hypo-osmolality and hyponatremia; E87.6 Hypokalemia; Y92.9 Unspecified place or not applicable; Y04.2XXA Assault by strike against or bumped into by another person, initial encounter; R74.01 Elevation of levels of liver transaminase levels; Z79.899 Other long term (current) drug therapy; E80.6 Other disorders of bilirubin metabolism; F10.10 Alcohol abuse, uncomplicated; Y90.0 Blood alcohol level of less than 20 mg/100 ml; F19.10 Other psychoactive substance abuse, uncomplicated; E87.20 Acidosis, unspecified; Z91.81 History of falling; R53.1 Weakness
CPT/HCPCS: 36415; 70450-TC; 70486-TC; 71045-TC; 72125-TC; 80048-TC; 80076-TC; 82140-TC; 82607-TC; 82803-TC; 82962-TC; 83735-TC; 83921; 84100-TC; 84443-TC; 85025-TC; 85730-TC; 86850-TC; 90715; 97110-TC; 97116-TC; 97530-TC; A4223; A6403; G0378; G0480; J3490; J7030

== ENCOUNTER 2023-03-18 09:37 | Emergency (ER) | payer MEDICAID ==
[~2023-03-18] VITALS: Ht 167.6 cm; Wt 74.8 kg
[~2023-03-18 09:37] MED LIST changes: -IBUP-1953 PO; -IBUP-1955 PO; -KETO10TA2 PO; +THIA100T88 PO; -TRAM-351 PO
[2023-03-18 09:44] VITALS: BP 139/72; TEMP 98.2
[2023-03-18 09:50] VITALS: O2SAT 97
== END 2023-03-18 10:07 | disposition home or self-care (01) ==
LOC: ER 09:40
DX: Z48.02 Encounter for removal of sutures (principal); S01.01XD Laceration without foreign body of scalp, subsequent encounter; X58.XXXD Exposure to other specified factors, subsequent encounter

== ENCOUNTER 2023-03-31 12:15 | Emergency (ER) | payer MEDICAID ==
[~2023-03-31] VITALS: Ht 165.1 cm; Wt 72.6 kg
[2023-03-31 13:43] LABS: BASOPHILS % (AUTO) 1.1 % (0.0-2.0); EOSINOPHILS % (AUTO) 0.6 % (0.0-6.0); HEMATOCRIT 32 % (39-51); HEMOGLOBIN 10.4 g/dL (13.5-17.5); LYMPHOCYTES # (AUTO) 1.4 K/uL (0.8-4.8); LYMPHOCYTES % (AUTO) 46.4 % (20.0-44.0); MEAN CORPUSCULAR HEMOGLOBIN 30 PG (26.0-33.0); MEAN CORPUSCULAR HGB CONC 32 g/dl (31.0-36.0); MEAN CORPUSCULAR VOLUME 94 fL (80-96); MONOCYTES # (AUTO) 0.3 K/uL (0.1-1.30); MONOCYTES % (AUTO) 10.5 % (2.0-12.0); NEUTROPHILS # (AUTO) 1.3 K/uL (1.8-8.9); NEUTROPHILS % (AUTO) 41.4 % (43.0-81.0); PLATELET COUNT (AUTO) 146 K/uL (150-450); RED BLOOD CELL COUNT(AUTO) 3.46 MIL/uL (4.5-6.0); RED CELL DISTRIBUTION WIDTH 14.9 % (11.5-15.0); WHITE BLOOD COUNT (AUTO) 3.1 K/uL (4.3-11.0)
[2023-03-31 13:55] LABS: CALCIUM, SERUM 8.7 mg/dL (8.5-10.1); CARBON DIOXIDE 26 mmol/L (21-32); CHLORIDE 106 mmol/L (98-107); CREATININE 0.4 mg/dL (0.6-1.3); GLUCOSE 108 mg/dL (74-106); POTASSIUM 3.8 mmol/L (3.5-5.1); SODIUM SERUM 141 mmol/L (136-145); UREA NITROGEN, BLOOD 5 mg/dL (7-18)
[2023-03-31 14:05] LABS: ALANINE AMINOTRANSFERASE 57 U/L (12-78); ALBUMIN 3.8 g/dL (3.4-5.0); ALKALINE PHOSPHATASE 94 U/L (46-116); ASPARTATE AMINOTRANSFERASE 39 U/L (15-37); BILIRUBIN,DIRECT 0.1 mg/dL (0.0-0.2); BILIRUBIN,TOTAL 0.2 mg/dL (0.2-1.0); NT-PRO BNP 17 pg/mL (0-125); TOTAL PROTEIN, SERUM 7.5 g/dL (6.4-8.2)
[2023-03-31 17:22] VITALS: BP 136/72; TEMP 98.2; O2SAT 99
== END 2023-03-31 16:50 | disposition home or self-care (01) ==
LOC: ER 13:23
DX: R07.9 Chest pain, unspecified (principal)
CPT/HCPCS: 36415; 71045-TC; 80048-TC; 80076-TC; 83880; 84484-TC; 85025-TC

== ENCOUNTER 2023-04-03 11:06 | Emergency (ER) | payer MEDICAID ==
[~2023-04-03] VITALS: Ht 162.6 cm; Wt 75.7 kg
[2023-04-03] MEDS ORDERED: methylPREDNISolone SOD SUCC 40 MG/ML VIAL ONE (11:50)
[2023-04-03] MEDS ORDERED: KETOROLAC TROMETHAMINE INJ 30 MG/ML VIAL ONE (11:50)
[2023-04-03] MEDS ORDERED: CYCLOBENZAPRINE 10 MG TABLET ONE (11:51)
[2023-04-03] MEDS ORDERED: KETOROLAC TROMETHAMINE INJ 60 MG/2 ML VIAL IM ONE (12:00)
[2023-04-03] MEDS ORDERED: methylPREDNISolone SOD SUCC 40 MG/ML VIAL IM ONE (12:00)
[2023-04-03] MEDS ORDERED: CYCLOBENZAPRINE 10 MG TABLET PO ONE (12:00)
[2023-04-03] MEDS ORDERED: KETO10TA2 PO (13:00)
[2023-04-03] MEDS ORDERED: CYCL5TAB PO (13:00)
[2023-04-03 13:37] VITALS: BP 131/64; TEMP 98.4; O2SAT 100
== END 2023-04-03 13:38 | disposition home or self-care (01) ==
LOC: ER 11:08
DX: M25.561 Pain in right knee (principal); M25.562 Pain in left knee
CPT/HCPCS: 99284; 96372 ×2; 73564 ×2; J2920; J1885

== ENCOUNTER 2024-10-15 19:31 | Emergency (ER) | payer MEDICAID, OTHER ==
[~2024-10-15] VITALS: Ht 165.1 cm; Wt 77.1 kg
[~2024-10-15 19:31] MED LIST changes: +CYCL5TAB PO; +KETO10TA2 PO; -THIA100T88 PO
[2024-10-15 20:23] LABS: CALCIUM, SERUM 8.5 mg/dL (8.5-10.1); CREATININE 0.7 mg/dL (0.6-1.3); SODIUM SERUM 136.0 mmol/L (136-145); UREA NITROGEN, BLOOD 6.0 mg/dL (7-18)
[2024-10-15 20:36] LABS: PLATELET COUNT (AUTO) 101 K/uL (150-450); RED BLOOD CELL COUNT(AUTO) 4.10 MIL/uL (4.5-6.0); RED CELL DISTRIBUTION WIDTH 18.7 % (11.5-15.0); WHITE BLOOD COUNT (AUTO) 2.8 K/uL (4.3-11.0)
[2024-10-15 20:38] LABS: ALCOHOL, BLOOD 517.0 mg/dL (0-10); ASPARTATE AMINOTRANSFERASE 325.0 U/L (15-37); TOTAL PROTEIN, SERUM 7.9 g/dL (6.4-8.2)
[2024-10-15 23:00] LABS: EOSINOPHILS % (MANUAL) 2 % (0-4); LYMPHOCYTES % (MANUAL) 43 % (16-48); MONOCYTES % (MANUAL) 6 % (0-11.0); NEUTROPHILS % (MANUAL) 49 (42-76)
[2024-10-15 23:01] LABS: PLATELET ESTIMATE DECREASED
[2024-10-16 00:48] LABS: BLOOD, URINE NEGATIVE Ery/uL (NEGATIVE); LEUKOCYTE ESTERASE ,URINE NEGATIVE (NEGATIVE); NITRITE, URINE NEGATIVE (NEGATIVE); UGLUCOSE NEGATIVE (NEGATIVE)
[2024-10-16 01:02] LABS: AMPHETAMINE, URINE NEGATIVE (NEGATIVE); BARBITURATE, URINE NEGATIVE (NEGATIVE); BENZODIAZEPINE, URINE NEGATIVE (NEGATIVE); CANNABINOID, URINE POSITIVE (NEGATIVE); COCCAINE, URINE NEGATIVE (NEGATIVE); OPIATE, URINE NEGATIVE (NEGATIVE)
[2024-10-16 01:27] LABS: ADD URINE CULTURE YES; SQUAMOUS EPITHELIAL CELL,UR Few /HPF (None Seen)
[2024-10-16 01:28] LABS: APPEARANCE,URINE SLIGHTLY HAZY (CLEAR)
[2024-10-16 05:18] VITALS: BP 131/74; TEMP 98; O2SAT 99
== END 2024-10-16 05:18 | disposition home or self-care (01) ==
LOC: ER 19:32
DX: S00.81XA Abrasion of other part of head, initial encounter (principal); F10.129 Alcohol abuse with intoxication, unspecified; R51.9 Headache, unspecified; Z59.00 Homelessness unspecified; Z79.899 Other long term (current) drug therapy; Z20.822 Contact with and (suspected) exposure to COVID-19; Y90.8 Blood alcohol level of 240 mg/100 ml or more
CPT/HCPCS: 36415; 70450-TC; 70486-TC; 72125-TC; 80048-TC; 80076-TC; 81001; 85027-TC; G0480